=== PATIENT | male | born 1955 | race Caucasian/White ===

== ENCOUNTER 2018-03-06 11:45 | Outpatient (CLI) | payer BC, SELFPAY ==
[2018-03-06 13:02] LABS: CREATININE 1.06 mg/dL (0.70-1.30); Potassium 4.5 mmol/L (3.5-5.1)
== END 2018-03-06 12:05 ==
PROVIDERS: PCP General Practice; Visit Provider General Practice
DX: I10 Essential (primary) hypertension (principal)
CPT/HCPCS: 36415; 82565; 84132

== ENCOUNTER 2019-05-14 12:56 | Outpatient (CLI) | payer BC, SELFPAY ==
[2019-05-14 13:59] LABS: CREATININE 0.95 mg/dL (0.70-1.30); Potassium 4.7 mmol/L (3.5-5.1)
== END 2019-05-14 13:16 ==
PROVIDERS: PCP General Practice; Visit Provider General Practice
DX: I10 Essential (primary) hypertension (principal)
CPT/HCPCS: 36415; 82565; 84132

== ENCOUNTER 2019-11-15 03:35 | Outpatient (CLI) | payer OTHER, SELFPAY ==
[2019-11-15 10:56] LABS: Anion Gap 11.5 mmol/L (3-11); BUN 30 mg/dL (7-18); CO2 25.5 mmol/L (21.0-32.0); CREATININE 1.12 mg/dL (0.70-1.30); Calcium 10.1 mg/dL (8.5-10.1); Calculated LDL 80 mg/dL (<100); Chloride 105 mmol/L (98-107); Cholesterol 148 mg/dL (<200); Glucose 92 mg/dL (74-106); HDL Cholesterol 63 mg/dL (40-60); Potassium 4.4 mmol/L (3.5-5.1); Sodium 142 mmol/L (136-145); Triglyceride 27 mg/dL (<150)
== END 2019-11-15 03:55 ==
PROVIDERS: PCP Internal Medicine; Visit Provider Internal Medicine
DX: I10 Essential (primary) hypertension (principal); E78.00 Pure hypercholesterolemia, unspecified
CPT/HCPCS: 36415; 80048; 80061

== ENCOUNTER 2020-11-22 02:47 | Outpatient (CLI) | payer MEDICARE, SELFPAY ==
[2020-11-22 10:39] LABS: Anion Gap 11.1 mmol/L (3-11); BUN 25 mg/dL (7-18); CO2 24.9 mmol/L (21.0-32.0); CREATININE 1.2 mg/dL (0.70-1.30); Calculated LDL 80 mg/dL (<100); Chloride 106 mmol/L (98-107); Cholesterol 147 mg/dL (<200); Glucose 99 mg/dL (74-106); HDL Cholesterol 59 mg/dL (40-60); Potassium 4.4 mmol/L (3.5-5.1); Sodium 142 mmol/L (136-145); Triglyceride 40 mg/dL (<150)
== END 2020-11-22 02:48 | disposition home or self-care (01) ==
LOC: LBO 02:47
PROVIDERS: PCP Internal Medicine; Visit Provider Internal Medicine
DX: I10 Essential (primary) hypertension (principal); E78.00 Pure hypercholesterolemia, unspecified
CPT/HCPCS: 36415; 80048; 80061

== ENCOUNTER 2020-12-11 10:16 | Outpatient (CLI) | payer MEDICARE, SELFPAY ==
--- NOTE | 2020-12-11 09:15 | DI.RAD_ITS ---
Exam(s) XR FINGER RT MIDDLE EXAM: XR FINGER RT MIDDLE CLINICAL HISTORY: RMF swelling and pain, ?osteophytes. TECHNIQUE: 2D digital imaging was performed. COMPARISON: No exams were available for comparison FINDINGS: There is no evidence of fracture of the middle-3rd finger. Main finding significant degenerative martha rowing of the distal interphalangeal joint and dorsal osteophytes in this joint evident. Similar fin dings are not seen in the proximal interphalangeal joint and the metacarpophalangeal joint appears un remarkable IMPRESSION: DATA REPOSITORY: RADIATION DOSE DELIVERED:
== END 2020-12-11 10:17 | disposition home or self-care (01) ==
LOC: DIORS 10:16
PROVIDERS: PCP Internal Medicine; Referring Provider Internal Medicine; Visit Provider Student in an Organized Health Care Education/Training Program
DX: M67.441 Ganglion, right hand (principal); M15.1 Heberden's nodes (with arthropathy); M79.644 Pain in right finger(s)
CPT/HCPCS: 99203; 73140

== ENCOUNTER 2020-12-19 10:16 | Day surgery (SDC) | payer MEDICARE, SELFPAY ==
--- NOTE | 2020-12-19 07:57 | PDOC.DSDIS_ITS ---
Discharge Plan Disposition Patient Disposition: HOME Condition: Good Discharge Details Reason For Visit: Right middle finger ostectomy Attending Provider: Leo Cummings Primary Care Provider: Romana Leon Home Meds and New Rx's Prescriptions: New hydrocodone-acetaminophen 5-325 mg tablet 1 tab PO Q6H PRNQty: 5 RF: 0 acetaminophen [Tylenol Extra Strength] 500 mg tablet 500 mg PO Q6H PRNQty: 30 RF: 0 ibuprofen 600 mg tablet 600 mg PO TID Qty: 30 RF: 0 Continued lisinopril 40 mg tablet 40 mg PO DAILY Qty: 90 RF: 3 gemfibrozil 600 mg tablet 600 mg PO BID Qty: 180 RF: 3 nifedipine 30 mg tablet extended release 24hr 30 mg PO BID Qty: 180 RF: 3 simvastatin [Zocor] 20 mg tablet 20 mg PO DAILY Qty: 90 RF: 3 ibuprofen 200 MG capsule 400 mg PO PRN PRNRF: 0 Discharge Instructions Additional Instructions: Discharge Instructions Activity: You should keep the hand elevated as much as possible for the first few days. You may use the other fingers as tolerated but avoid trying to do too much too soon. You may perform light activities. Dressing/Cast: Your dressing should stay in place for 72 hours. You may remove the dressing after 72 hours. Keep surgical site clean and dry. Medications: - You should take Tylenol and Ibuprofen for baseline pain control. - You have hydrocodone for breakthrough pain. - You may apply ice over the surgical site. 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
[2020-12-19 10:28] VITALS: BP 146/75; PULSE 105; TEMP 36.5; O2SAT 97
[2020-12-19] MEDS: Sodium Bicarbonate 50 MEQ/50 ML VIAL (11:24)
[2020-12-19 12:16] VITALS: BP 153/80; PULSE 92; RESP 17; TEMP 36.6; O2SAT 98
--- NOTE | 2020-12-19 20:35 | ROE_ITS ---
Date of service: 12/19/20 Time of Service: 12:35 Operative Note Operative Note DATE OF PROCEDURE: 12/20/20 PRE-OP DIAGNOSIS: Right middle finger DIP osteophytes POST-OP DIAGNOSIS: same PROCEDURE: Ostectomy of DIP osteophytes, right middle finger SURGEON: Leo Cummings ELIGIBILITY SERVICES REPRESENTATIVE: Bernardo Mosley ANESTHESIA TYPE: Local By Surgeon Refer to Anesthesia Record ESTIMATED BLOOD LOSS: 5 PATHOLOGY: none sent COMPLICATIONS: None Patient was transported to: same day Patient's condition: stable Indications: I have seen Lars in clinic for symptoms of painful and prominent osteophytes of the DIP joint of the right middle finger. He felt that these are getting larger and were quite painful with any direct pressure. X-rays dem onstrate large osteophytes about the DIP with notable arthritis of the DIP joint. The symptoms had not responded to conservative measures. I discussed removal of the osteophytes with the patient. I reviewed the risks of the procedure to include, but not limited to, bleeding, infection, pain, worsening stiffness, incomplete release, damage to nerves or vessels, injury to the extensor tendon mechanism, and recurrence. Despite these risks, the patient elected to proceed. Findings: There are prominent osteophyte seen surrounding the dorsal and lateral aspects of the DIP joint. The extensor tendon was elevated but a portion of the osteophyte was attached to the tendon and therefore not removed. Procedure Description: Lars was greeted in the preoperative holding area where the correct side was identified and marked. The consent was reviewed with the patient and signed. All questions were answered. He was taken back to the operating room. The patient was placed into the supine position on the operating room table with the right arm on an arm board. All bony prominences were well padded. No prophylactic antibiotics were administered since this was a clean, elective hand surgical case. The right arm was then prepped with Chloraprep and draped in a standard fashion with stockine tte and extremity drape. A timeout to confirm correct identity, side and site, procedure, allergies, anesthesia, and medical concerns was performed. The surgical site was marked as a H type incision directly over the DIP joint of the right middle finger, except only one proximal and one distal limb were used. A digital block was then performed by injecting approximately 10 cc of 1% lidocaine with epinephrine buffered with sodium bicarb overlying the metacarpal head of the middle finger. The patient tolerated this well and once the anesthetic had setup, the procedure began. The incision overlying the DIP joint was made. This was a vertical limb distal to the DIP joint extension creases with a transverse limb running across the extensor creases and then another vertical proximal limb on the opposite side. This was taken out the skin sharply and down to the fascia of the extensor tendon mechanism and capsule. These flaps were elevated and retracted all the way with excellent visualization of the extensor tendon and the DIP joint. The capsule was then incised on either side of the extensor tendon. There are prominent osteophytes on either side of the extensor tendon, slightly more radial than ulnar. Subperiosteal dissection was carried out around those osteophytes and they were removed with a rongeur. A rasp was also used to smooth down the surfaces and repeated attempts of palpation to define any prominences were utilized to ensure adequate resection. The extensor tendon complex was then elevated off of the DIP joint. Prominence from the head of the middle phalanx were resected. Osteophytes at the base of the distal phalanx, however, were closely associated with the extensor tendon mechanism. As I previously discussed with Mr. Lyons and once again discussed during the case, I am reluctant to release the extensor tendons this will require at least 6 weeks of splinting. Given the amount of arthritis in his finger this may lead to substantial arthritis and autofusion situation. Therefore, I did not detach the extensor tendon mechanism. I did work underneath the extensor tendon with a rasp, a freer, and a rongeur, to remove some of the prominence of the osteophytes but a large portion was attached directly to the extensor mechanism. With the osteophytes on either side extensor tendon removed. A rasp was once again utilized to make sure there is no sharp bony prominences. The wounds and thoroughly irrigated. There is no injury to the extensor tendon centrally but there may have been a few disrupted fibers on the ulnar side. Therefore, I placed a small 2-0 Vicryl suture in those fibers to reapproximate back to the extensor mechanism. Lars was able to demonstrate active extension of the finger with no increase in a droop. The skin was then reapproximated with 4-0 nylon. The finger was dressed with Xeroform, 4 x 4's and a tube gauze dressing. Mr. Lyons tolerated the procedure well and was returned to the Same Day Surgery area in a stable condition suffering no known complication.
== END 2020-12-19 12:42 | disposition home or self-care (01) ==
LOC: SUR 10:17
PROVIDERS: PCP Internal Medicine; Visit Provider Student in an Organized Health Care Education/Training Program
PROC: (CPT 26860; principal; 2020-12-19 11:30)
DX: M25.741 Osteophyte, right hand (principal); M19.041 Primary osteoarthritis, right hand
CPT/HCPCS: 26525

== ENCOUNTER → 2021-01-18 10:35 | Outpatient (BNVA) | payer MEDICARE, SELFPAY | PROVIDERS: PCP Internal Medicine; Referring Provider Internal Medicine; Visit Provider Student in an Organized Health Care Education/Training Program | DX: Z47.89 Encounter for other orthopedic aftercare (principal); M15.1 Heberden's nodes (with arthropathy) ==

== ENCOUNTER → 2021-10-18 10:51 | Outpatient (BNVA) | payer MEDICARE, SELFPAY | PROVIDERS: PCP Internal Medicine; Referring Provider Internal Medicine; Visit Provider Physical Therapy Assistant | DX: Z12.11 Encounter for screening for malignant neoplasm of colon (principal); Z86.010 Personal history of colon polyps ==

== ENCOUNTER 2021-10-29 03:24 | Outpatient (CLI) | payer MEDICARE, SELFPAY ==
[2021-10-29 13:08] LABS: Anion Gap 10.6 mmol/L (3-11); BUN 31 mg/dL (7-18); CO2 25.4 mmol/L (21.0-32.0); Calculated LDL 77 mg/dL (<100); Chloride 106 mmol/L (98-107); Cholesterol 151 mg/dL (<200); Glucose 86 mg/dL (74-106); HDL Cholesterol 63 mg/dL (40-60); Potassium 4.5 mmol/L (3.5-5.1); Sodium 142 mmol/L (136-145); Triglyceride 55 mg/dL (<150)
== END 2021-10-29 03:25 | disposition home or self-care (01) ==
LOC: LBO 03:24
PROVIDERS: PCP Internal Medicine; Visit Provider Internal Medicine
DX: E78.00 Pure hypercholesterolemia, unspecified (principal); I10 Essential (primary) hypertension
CPT/HCPCS: 36415; 80048; 80061

== ENCOUNTER 2021-11-05 07:00 | Day surgery (SDC) | payer MEDICARE, SELFPAY ==
--- NOTE | 2021-11-05 06:46 | W.COLOREPORT ---
Colonoscopy Report Date of procedure: 11/05/21 Pre-op diagnosis general: colon cancer screening and hx of polyps Post-op diagnosis procedure note: same (and mild diverticulosis) Procedure: Colonoscopy Surgeon: Benita Lara Anesthesia Type: General:No Airway Estimated blood loss (mL): 0 Pathology: none sent Complications: None Disposition: same day Indications: The patient is here for Colonoscopy pre-op. His last screening was in 2017 and was remarkable for tubular adenomatous polyp. He has no family history of colon cancer. He has not had any bowel habit changes. -Discussed colonoscopy bowel prep as well as the procedure. Discussed possible complications of the procedure to include bleeding, pain, perforation, missed small lesion/polyp, sore throat, aspiration and adverse reaction to the medications. Questions were answered to patient?s satisfaction. No guarantees were implied or given.? Prep: Miralax/Dulcolax Procedure Start Time: 08:19 Procedure End Time: 08:36 Retraction Time: 9 minutes Findings: mild arauz-diverticulosis Procedure Description: After informed consent was obtained the patient was taken to the procedure room and placed in a left decubitous position. Monitors were applied and a time out was done. The patients name, date of , procedure, allergies to medications and metal in their body was reviewed. The patient was then sedated. Once sedated and comfortable a rectal exam was done. External exam was normal. Internal exam revealed a normal sphincter tone and no palpable masses. The prostate felt smooth. The scope was then introduced and retro-flexed. no internal hemorrhoids, polyps or masses were identified on retro-flexion. The scope was then advanced to the cecum without difficulty. The ileocecal vlave and appendiceal orifice were identified. The prep was adequate. The scope was then slowly retracted over 9 minutes back into the rectum. There were no polyps. There was mild arauz- diverticulosis noted. The scope was removed and the patient was woken up and taken back to Same day surgery in stable condition. The patient tolerated the procedure well and there were no immediate complications. Follow up: The patient should follow up in 5 years unless they develop changes in bowel habits or other new gastrointestinal complaints.
--- NOTE | 2021-11-05 06:47 | PDOC.DSDIS_ITS ---
Discharge Plan Disposition Patient Disposition: HOME Condition: Good Discharge Details Reason For Visit: Colonoscopy Attending Provider: Benita Lara Primary Care Provider: Romana Leon Home Meds and New Rx's Prescriptions: Continued Shingrix (PF) 50 mcg/0.5 mL suspension for reconstitution 0.5 ml IM ONCE Qty: 1 1RF Rx Instructions: Administer one dose and repeat in 2-6 months gemfibrozil 600 mg tablet 600 mg PO BID Qty: 180 3RF lisinopril 40 mg tablet 40 mg PO DAILY Qty: 90 3RF nifedipine 30 mg tablet extended release 24 hr 30 mg PO BID Qty: 180 3RF simvastatin [Zocor] 20 mg tablet 20 mg PO DAILY Qty: 90 3RF Discontinued bisacodyl [Dulcolax (bisacodyl)] 5 mg tablet,delayed release (DR/EC) 5 mg PO ONCE Qty: 4 0RF Rx Instructions: Take according to provider's instructions for colonoscopy prep. polyethylene glycol 3350 17 gram/dose powder 17 g PO ONCE Qty: 238 0RF Rx Instructions: To be taken as directed by prescriber's office for colonoscopy prep. Discharge Instructions Instructions: Diverticulosis (DC) Additional Instructions: Findings: No polyps Diverticulosis Follow up: 5 years Please call if you develop: fevers >101.5 Nausea or Vomiting Abdominal pain that is not transient Rectal bleeding that is more then a tbsp A hard abdomen and inability to pass gas DAY SURGERY UNIT POST ENDOSCOPY INSTRUCTIONS Instructions for everyone who is given Anesthesia: For your safety, please do the following for the next 24 Hours: a. Do not drive or operate dangerous equipment b. Do not drink alcohol beverages or use any recreational drugs for the first 24 hours or while taking pain medications. The medications in your body may have a reaction that can be dangerous. c. Do not make any important decisions or sign any important papers 1. Generally there are no restrictions on your activity after a day or so has gone by, but you may feel a bit fatigued for a few days. 2. After you arrive home you may have a light meal and return to a normal diet as you can tolerate it without feeling sick to your stomach. 3. After surgery, you may feel pain or discomfort. This should be only trans ient, but if it persists please contact your doctor. 4. If there are any questions regarding the findings of your procedure, please feel free to contact your doctor. 6. If you are unable to contact your doctor with a problem, contact the hospital at [phone]. 7. Continue all your regular medications unless directed otherwise. I understand the above instructions and have no questions. Signature of Patient or Responsible Adult Escort Date/Time Name of Responsible Adult Escort Signature of Nurse Date/Time Activity:: Activity as Tolerated Diet:: high fiber diet Discharge Orders Discharge Orders: Discharge Order (Routine); Ordered 11/05/21 Ordered By: Benita Lara
[2021-11-05 07:17] VITALS: BP 159/84; PULSE 107; RESP 18; TEMP 36.5; O2SAT 98
--- NOTE | 2021-11-05 07:40 | ANES.PREOP_ITS ---
General Info Date of Service Date Performed: 11/05/21 Height: 5 ft 10 in Weight: 80.9 kg Body Mass Index (BMI): 25.5 Surgical Procedure: Operation Date: 11/05/21 09:35 Proposed Procedure Side Surgeon p Colonoscopy Benita Lara MD Meds Allergies and Home Medications Allergies Allergy/AdvReac Type Severity Reaction Status Date / Time No Known Allergies Allergy Verified 11/05/21 07:21 Home Medication Medication Instructions Recorded varicella-zoster glycoE [id number] 0.5 ml IM ONCE #1 ea 04/24/21 adj(PF) 50 mcg/0.5 mL IM susp, kit (Shingrix (PF)) gemfibrozil 600 mg tablet 600 mg PO BID #180 tabs 10/13/21 lisinopril 40 mg tablet 40 mg PO DAILY #90 tab-caps 10/13/21 nifedipine 30 mg tablet,extended 30 mg PO BID #180 tabs 10/13/21 release 24 hr simvastatin 20 mg tablet (Zocor) 20 mg PO DAILY #90 tab-caps 10/13/21 bisacodyl 5 mg tablet,delayed 5 mg PO ONCE #4 tabs 10/18/21 release (Dulcolax (bisacodyl)) polyethylene glycol 3350 17 17 g PO ONCE #238 grams 10/18/21 gram/dose oral powder Current Visit Medications: Current Medications Generic Name Dose Route Start Last Admin Trade Name Freq PRN Reason Stop Dose Admin Hyoscyamine Sulfate 0.125 mg 11/05/21 06:48 Hyoscyamine 0.125 Mg Sl/Oral/Chew SL DIRECTED PRN Ringer's Solution 1,000 mls @ 80 mls/hr 11/05/21 06:00 IV 12/02/21 23:59 INFUSION [facility] IV Miscellaneous Supplies 1 each 11/05/21 06:00 Iv Access IV 12/02/21 23:59 DIRECTED FELIX Ondansetron HCl 4 mg 11/05/21 06:48 Ondansetron 4 Mg/2 Ml Vial IVP Q4H PRN PRN Nausea / Vomiting Sodium Chloride 0 ml 11/05/21 06:00 Normal Saline Flush 10 Ml Syr IV 12/02/21 23:59 PRN PRN Sodium Chloride 0 ml 11/05/21 06:00 Normal Saline 10 Ml Vial IJ 12/02/21 23:59 DIRECTED PRN Sterile Water 0 ml 11/05/21 06:00 Water,Injection,Sterile 10 Ml Vial IJ 12/02/21 23:59 DIRECTED PRN PFSH Active Problems Active Problems: Problem Status Onset Code Screening for colon cancer Z12.11 Diverticulosis of colon K57.30 Tubular adenoma of colon D12.6 Former cigarette smoker Z87.891 Medical History Medical History 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 Status post osteotomy of DIP osteophytes from right middle finger DOS: 12/19/20 Essential hypertension Hypercholesterolemia Mucous cyst of digit of right hand Patient request for diagnostic testing Medical History Comments:: repeat vitals at 7:30am: BP 156/80, HR 84, 18 Surgical History Surgical History Colonoscopy - IV Sedation (09/16/16) 2005 Repair of inguinal hernia Tobacco Smoking/Tobacco Use Status: Former Tobacco Use Alcohol Alcohol Intake: current Alcohol intake frequency: 0-2 drinks per day Alcohol type: wine Substance Use Substance use: Never Substance use type: does not use Vital Signs and Lab Results Vital Signs Most Recent Vital Signs in EMR: Most Recent Vital Signs Temp Pulse Resp BP Pulse Ox 36.5 C 107 H 18 159/84 H 98 11/05/21 07:17 11/05/21 07:17 11/05/21 07:17 11/05/21 07:17 11/05/21 07:17 Lab Results Blood Type / Crossmatch: No Data to Display Complete Blood Count: No Data to Display Complete Metabolic Panel: Sodium Level 142 mmol/L (136-145) 10/29/21 11:50 Potassium Level 4.5 mmol/L (3.5-5.1) 10/29/21 11:50 Chloride Level 106 mmol/L (98-107) 10/29/21 11:50 Carbon Dioxide Level 25.4 mmol/L (21.0-32.0) 10/29/21 11:50 Blood Urea Nitrogen 31 mg/dL (7-18) H 10/29/21 11:50 Creatinine 1.0 mg/dL (0.70-1.30) 10/29/21 11:50 Estimated GFR/1.73 m2 >= 60.00 (mL/min/1.73m2) 10/29/21 11:50 Calcium Level 9.0 mg/dL (8.5-10.1) 10/29/21 11:50 Glucose Level 86 mg/dL (74-106) 10/29/21 11:50 Liver Function Panel: No Data to Display Coagulation Panel: No Data to Display Cardiac Panel: No Data to Display Arterial Blood Gas: No Data to Display Venous Blood Gas: No Data to Display Pancreas Panel: No Data to Display Thyroid Panel: No Data to Display Infectious Disease: No Data to Display Blood Cultures: No Data to Display Toxicology Panel: No Data to Display Anesthesia Assessment and Plan Anesthesia History Personal History: No History of Anesthesia Complications Family History: No Family History of Anesthesia Complications Exercise Tolerance Exercise Tolerance: Metabolic Equivalents>4 Pertinent Negatives Pertinent Negatives: No Symptoms of GERD (None since diet change), No Major Cardiovascular Symptoms or Complaints, No Major Pulmonary Symptoms or Complaints and No History of CVA/TIA Cardiac & Pulmonary Exam Cardiac Exam: Normal S1/S2 Heart Sounds Pulmonary Exam: Clear Bilateral Breath Sounds Implantable Cardiac Device Does patient have a Pacemaker or an ICD?: No Airway Exam Known Difficult Airway: No Mallampati Class: 3 Mouth Opening: Normal (> 3cm) Thyromental Distance: Greater than 3 cm Neck Range of Motion: Full ROM Neck Circumference: Normal Teeth Condition: Normal Dentition ASA Classification ASA Score: ASA 2 Emergency Case?: No NPO Status NPO Status: NPO Clears >2 hours, Solids >8 hours Anesthesia Plan Resuscitation Status: Full Code Anesthesia Technique: General Anesthesia Airway Planned: Natural Airway Monitors Used: Standard Monitors
[2021-11-05] MEDS: Lactated Ringers 1,000 ML 80 ML IV (07:45)
[2021-11-05 08:03] VITALS: BMI 25.5
[2021-11-05 08:45] VITALS: BP 97/67; PULSE 67; RESP 16; TEMP 35.6; O2SAT 94
--- NOTE | 2021-11-05 09:00 | W.ANESPOSTOP ---
Postoperative Evaluation Date, Time and Location Date Performed: 11/05/21 Time Performed: 08:45 Patient Location: Day Surgery Unit Vital Signs Most Recent Imported Vital Signs: Most Recent Vital Signs Temp Pulse Resp BP Pulse Ox 35.6 C L 67 16 97/67 L 94 11/05/21 08:45 11/05/21 08:45 11/05/21 08:45 11/05/21 08:45 11/05/21 08:45 Pain Score Most Recent Pain Score: Most Recent Pain Score Pain Level 0 11/05/21 08:45 Assessment Mental Status: Awake (Alert & Oriented to Patient Baseline) Airway and Respiratory Function: Patent airway with normal (patient baseline) respiratory exam Cardiovascular Function: Hemodynamically Stable Hydration Status: Adequately Hydrated Nausea & Vomiting: No Nausea or Vomiting Pain: Pt. Denies Any Pain Peripheral Nerve Block: Patient did not receive a nerve block
[2021-11-05 09:19] VITALS: BP 133/70; PULSE 65; RESP 18; TEMP 36.4; O2SAT 97
== END 2021-11-05 10:05 | disposition home or self-care (01) ==
PROVIDERS: PCP Internal Medicine; Visit Provider Surgery
PROC: 0DJD8ZZ Inspection of Lower Intestinal Tract, Via Natural or Artificial Opening Endoscopic (ICD-10-PCS; CPT 45378; principal; 2021-11-05 09:30)
DX: Z12.11 Encounter for screening for malignant neoplasm of colon (principal); Z86.010 Personal history of colon polyps; K57.30 Diverticulosis of large intestine without perforation or abscess without bleeding
CPT/HCPCS: G0105

== ENCOUNTER 2022-05-22 16:02 | Outpatient (CLI) | payer MEDICARE, SELFPAY ==
--- NOTE | 2022-05-22 16:00 | RT.EKG_ITS ---
APPROVED REPORT Exam: Resting ECG Reason for Exam: acute chest pain Patient Location: O HR:64 bpm ECG Measurements Heart Rate 64 AXIS OK 173 P 61 QRSd 117 QRS 81 QT 403 T 44 QTc 416 Conclusion Sinus rhythm...normal P axis, V-rate 50- 99 Nonspecific intraventricular conduction delay...QRSd >115mS, not LBBB/RBBB
== END 2022-05-22 16:03 | disposition home or self-care (01) ==
LOC: DI.KIM 16:03
PROVIDERS: PCP Nurse Practitioner Adult Health; Visit Provider Nurse Practitioner Adult Health
DX: R07.9 Chest pain, unspecified (principal)
CPT/HCPCS: 93010

== ENCOUNTER 2022-07-31 01:40 | Outpatient (CLI) | payer MEDICARE, SELFPAY ==
[2022-07-31 08:03] LABS: Abs Immature Grans 0.01 10^3/uL (0.0-0.06); Absolute Basophil Count 0.05 10^3/uL (0.0-0.2); Absolute Eosinophil Count 0.24 10^3/uL (0.0-0.7); Absolute Lymphocyte Count 2.06 10^3/uL (1.2-3.4); Absolute Monocyte Count 0.71 10^3/uL (0.1-0.8); Absolute Neutrophil Count 2.19 10^3/uL (1.2-6.7); Eosinophils % 4.6; HCT 43.6 % (40.0-50.0); HGB 14.1 g/dL (13.5-17.5); Immature Grans % 0.2; Lymphocytes % 39.2; MCH 30.3 pg (27.0-33.0); MCHC 32.3 % (32.0-36.0); MCV 94 fL (80-95); MPV 11.7 fL (8.0-11.0); Monocytes % 13.5; Neutrophils % 41.5; Platelet Count 161 10^3/uL (130-400); RBC 4.65 10^6/uL (4.36-5.78); RDW 12.5 % (11.8-14.1); RDW-SD 43.3 fL; WBC 5.26 10^3/uL (4.4-10.8)
[2022-07-31 08:05] LABS: ESR 2 mm/hr (0-20)
[2022-07-31 08:58] LABS: ALT 27 U/L (16-63); AST 25 U/L (15-37); Alkaline Phosphatase 91 U/L (46-116); Anion Gap 8.4 mmol/L (3-11); BUN 22 mg/dL (7-18); Bilirubin, Total 0.4 mg/dL (0.2-1.0); CO2 29.6 mmol/L (21.0-32.0); Calcium 9.6 mg/dL (8.5-10.1); Calculated LDL 124 mg/dL (<100); Chloride 103 mmol/L (98-107); Cholesterol 199 mg/dL (<200); Estimated GFR 81.98 (mL/min/1.73m2); Glucose 98 mg/dL (74-106); HDL Cholesterol 53 mg/dL (40-60); Magnesium 1.6 mg/dL (1.8-2.4); Potassium 4.1 mmol/L (3.5-5.1); Sodium 141 mmol/L (136-145); Total Protein 7.4 g/dL (6.4-8.2); Triglyceride 111 mg/dL (<150)
[2022-07-31 09:17] LABS: C-Reactive Protein < 0.05 mg/dL (0.0-0.3)
== END 2022-07-31 01:41 | disposition home or self-care (01) ==
LOC: LBO 01:40
PROVIDERS: PCP Nurse Practitioner Adult Health; Visit Provider Nurse Practitioner Adult Health
DX: R07.9 Chest pain, unspecified (principal); E78.00 Pure hypercholesterolemia, unspecified
CPT/HCPCS: 36415; 80053; 80061; 85652; 83735; 84443; 85025; 86140

== ENCOUNTER 2022-10-02 02:53 | Outpatient (CLI) | payer MEDICARE, SELFPAY ==
[2022-10-02 09:17] LABS: Calculated LDL 86 mg/dL (<100); Cholesterol 163 mg/dL (<200); HDL Cholesterol 59 mg/dL (40-60); Triglyceride 91 mg/dL (<150)
== END 2022-10-02 02:54 | disposition home or self-care (01) ==
LOC: LBO 02:53
PROVIDERS: PCP Nurse Practitioner Adult Health; Referring Provider Nurse Practitioner Adult Health; Visit Provider Nurse Practitioner Adult Health
DX: E78.5 Hyperlipidemia, unspecified (principal); I10 Essential (primary) hypertension
CPT/HCPCS: 36415; 80061

== ENCOUNTER 2023-09-25 05:27 | Outpatient (CLI) | payer MEDICARE, SELFPAY ==
[2023-09-25 12:37] LABS: CREATININE 0.9 mg/dL (0.70-1.30); Calculated LDL 91 mg/dL (<100); Cholesterol 161 mg/dL (<200); Estimated GFR 92.45 (mL/min/1.73m2); HDL Cholesterol 55 mg/dL (40-60); Potassium 3.8 mmol/L (3.5-5.1); Triglyceride 79 mg/dL (<150)
[2023-09-29 20:13] LABS: Lab Add On Test DONE
[2023-09-29 20:22] LABS: Magnesium 1.7 mg/dL (1.8-2.4)
== END 2023-09-25 05:28 | disposition home or self-care (01) ==
LOC: LOS 05:27
PROVIDERS: PCP Family Medicine; Visit Provider Family Medicine
DX: I10 Essential (primary) hypertension (principal); E78.5 Hyperlipidemia, unspecified; E83.42 Hypomagnesemia
CPT/HCPCS: 36415; 80061; 82565; 83735; 84132

== ENCOUNTER 2023-10-14 05:56 | Outpatient (CLI) | payer MEDICARE, SELFPAY ==
[2023-10-14 12:08] LABS: HCT 44.3 % (40.0-50.0); HGB 14.6 g/dL (13.5-17.5); MCH 30.8 pg (27.0-33.0); MCV 94 fL (80-95); MPV 12.8 fL (8.0-11.0); Platelet Count 164 10^3/uL (130-400); RBC 4.74 10^6/uL (4.36-5.78); RDW 12.5 % (11.8-14.1); RDW-SD 43.3 fL; WBC 4.88 10^3/uL (4.4-10.8)
[2023-10-14 12:40] LABS: ALT 20 U/L (16-63); AST 16 U/L (15-37); Alkaline Phosphatase 83 U/L (46-116); Anion Gap 7.2 mmol/L (3-11); BUN 18 mg/dL (7-18); Bilirubin, Total 0.5 mg/dL (0.2-1.0); CO2 26.8 mmol/L (21.0-32.0); Calcium 8.9 mg/dL (8.5-10.1); Chloride 104 mmol/L (98-107); Estimated GFR 81.47 (mL/min/1.73m2); Glucose 94 mg/dL (74-106); Potassium 3.9 mmol/L (3.5-5.1); Sodium 138 mmol/L (136-145); Total Protein 7.2 g/dL (6.4-8.2)
== END 2023-10-14 05:57 | disposition home or self-care (01) ==
LOC: LOS 05:56
PROVIDERS: PCP Family Medicine; Visit Provider Family Medicine
DX: R53.83 Other fatigue (principal); R10.9 Unspecified abdominal pain
CPT/HCPCS: 36415; 80053; 85027

== ENCOUNTER 2024-10-15 03:01 | Outpatient (CLI) | payer MEDICARE, SELFPAY ==
[2024-10-15 12:21] LABS: HGB 14.1 g/dL (13.5-17.5); MCH 30.8 pg (27.0-33.0); MCHC 32.8 % (32.0-36.0); MCV 94 fL (80-95); MPV 12.2 fL (8.0-11.0); Platelet Count 171 10^3/uL (130-400); RBC 4.58 10^6/uL (4.36-5.78); RDW 12.8 % (11.8-14.1); RDW-SD 43.9 fL; WBC 5.29 10^3/uL (4.4-10.8)
[2024-10-15 12:50] LABS: ALT 23 U/L (16-63); AST 26 U/L (15-37); Albumin 3.9 g/dL (3.4-5.0); Alkaline Phosphatase 89 U/L (46-116); BUN 27 mg/dL (7-18); Bilirubin, Total 0.6 mg/dL (0.2-1.0); Calcium 9.3 mg/dL (8.5-10.1); Calculated LDL 71 mg/dL (<100); Chloride 105 mmol/L (98-107); Cholesterol 140 mg/dL (<200); Estimated GFR 80.97 (mL/min/1.73m2); Glucose 89 mg/dL (74-106); HDL Cholesterol 57 mg/dL (>or=40); Potassium 4.1 mmol/L (3.5-5.1); Sodium 140 mmol/L (136-145); Total Protein 7.2 g/dL (6.4-8.2); Triglyceride 63 mg/dL (<150)
[2024-10-17 12:31] LABS: Lipoprotein (a) <7 nmol/L (<75)
== END 2024-10-15 03:02 | disposition home or self-care (01) ==
LOC: LOS 03:01
PROVIDERS: PCP Family Medicine; Visit Provider Family Medicine
DX: E78.5 Hyperlipidemia, unspecified (principal); R53.83 Other fatigue; R10.9 Unspecified abdominal pain
CPT/HCPCS: 36415; 80053; 80061; 83695; 85027